=== PATIENT | female | born 1980 | race African-American/Black ===

== ENCOUNTER 2017-10-07 16:48 | Emergency (ER) | payer OTHER ==
[2017-10-07 16:57] VITALS: BP 175/99; PULSE 81; RESP 18; TEMP 97.8
--- NOTE | 2017-10-07 17:19 | ED ---
Skin/Abscess/FB HPI - General Chief complaint: Skin/Abscess/Foreign Body Stated complaint: Cyst on chest Time Seen by Provider: 10/07/17 17:10 Source: patient, RN notes reviewed Mode of arrival: ambulatory Limitations: no limitations - History of Present Illness Initial comments: This is a 36-year-old female who presents to emergency department with chief complaint of breast abscess. Patient states that she an abscess formed on her left areola 2 days ago. She states that she had this same issue last May and was seen here for incision and drainage. At that time she was started on oral antibiotics that cleared the infection up. Patient denies any fevers or chills. She denies any drainage from the area. Denies shortness breath, chest pain, nausea or vomiting. - Related Data Previous Rx's Medication Instructions Recorded Sulfamethox-Tmp 800-160Mg [Bactrim 1 tab PO Q12HR #20 tab 10/07/17 DS 800-160 mg] Allergies Allergy/AdvReac Type Severity Reaction Status Date / Time No Known Allergies Allergy Verified 10/07/17 16:57 Review of Systems ROS Statement: Those systems with pertinent positive or pertinent negative responses have been documented in the HPI. ROS Other: All systems not noted in ROS Statement are negative. Past Medical History Past Medical History: Hypertension History of Any Multi-Drug Resistant Organisms: None Reported Past Surgical History: No Surgical Hx Reported Additional Past Surgical History / Comment(s): fibroid tumors removed Past Psychological History: No Psychological Hx Reported Smoking Status: Current every day smoker Past Alcohol Use History: None Reported Past Drug Use History: None Reported General Exam - General Exam Comments Initial Comments: General: Awake and alert, well-developed; in no apparent distress. HEENT: Head atraumatic, normocephalic. Pupils are equal, round and reactive to light. Extraocular movements intact. Neck: Supple. Normal ROM. Cardiovascular: Regular rate and rhythm. No murmurs, rubs or gallops. Chest symmetrical. Respiratory: Lungs clear to auscultation bilaterally. No wheezes, rales or rhonchi. Normal respiratory effort with no use of accessory muscles. Musculoskeletal: Normal ROM, no tenderness bilateral upper and lower extremities. Ambulating normally. Skin: Hurricane, warm and dry without rashes. 2 cm x 2 cm area of fluctuance noted at medial left areola and nipple. No active drainage. Neurological: Alert and oriented x3. CN II-XII grossly intact. Speech is fluent and answers are appropriate. No focal neuro deficits. Psychiatric: Normal mood and affect. No overt signs of depression or anxiety noted. Limitations: no limitations Course Vital Signs 10/07/17 16:54 Temperature 97.8 F Pulse Rate 81 Respiratory 18 Rate Blood Pressure 175/99 O2 Sat by Pulse 100 Oximetry Procedures - Incision & Drainage Consent Obtained: verbal consent Indication: abscess Site: chest (left breast areola/nipple) Size (cm): 2 Anesthetic Used: lidocaine 1% Amount (mLs): 2 I&D Cleaning Method: Betadine Scalpel Used: #11 I&D Drainage Obtained: Pus, Blood Culture Obtained?: No Patient Tolerated Procedure: well, no complications Medical Decision Making - Medical Decision Making This is a 36-year-old female who presents to the emergency department with chief complaint of breast abscess. I&D was performed and contents consisted of blood and pus. Patient tolerated well without complication. A light gauze dressing was placed. This is the second time patient has had an abscess of the left areola. I explained to patient that this may be an inflamed cyst that needs to be fully removed when it is not infected. Patient will follow up with general surgery. She will be discharged home with a prescription for Bactrim. Recommended following up with her primary care provider. She is in agreement plan and voices understanding. All questions were answered. Disposition Clinical Impression: Abscess of breast Disposition: HOME SELF-CARE Condition: Good Instructions: Abscess Incision and Drainage (ED), Abscess (ED) Additional Instructions: Please follow-up with Dr. Ellis, General Surgeon within 1-2 days. Please take medications as prescribed. Please follow up with primary care provider within 1- 2 days. Return to emergency department if symptoms should worsen or any concerns arise. Prescriptions: Sulfamethox-Tmp 800-160Mg [Bactrim DS 800-160 mg] 1 tab PO Q12HR #20 tab Referrals: Sonido Akbar MD [Primary Care Provider] - 1-2 days Denise Ellis DO [Doctor of Osteopathic Medicine] - 1-2 days Time of Disposition: 17:49
== END 2017-10-07 18:05 | disposition home or self-care (01) ==
LOC: EC 16:48
DX: N61.1 Abscess of the breast and nipple (principal); F17.200 Nicotine dependence, unspecified, uncomplicated
CPT/HCPCS: 10060; 99282

== ENCOUNTER 2017-12-01 09:55 | Emergency (ER) | payer OTHER ==
[2017-12-01] MEDS ORDERED: KETOROLAC 30 MG/ML 1 ML VIAL IVP ONE (10:14)
--- NOTE | 2017-12-01 10:19 | ED ---
General Adult HPI - General Chief complaint: Abdominal Pain Stated complaint: Abd Pain Time Seen by Provider: 12/01/17 10:02 Source: patient Mode of arrival: ambulatory Limitations: no limitations - History of Present Illness Initial comments: Torri 37-year-old female with a past medical history significant for uterine fibroids who presents to the emergency department today for evaluation of low pelvic cramping pain and dysuria since yesterday. Patient reports that her menstrual cycle ended 2 days ago, yesterday while working she developed a cramping and pulling type pain in her low pelvis. The pain has persisted overnight which prompted her to come to the emergency department for evaluation. Pain is described as a pulling sensation. She reports the pain is severe in nature, worse with palpation. She can identify any relieving factors to the pain. The pain is associated with dysuria which she describes as worsening cramping when she urinates. She denies any burning sensation with urination. She reports that due to the pain she's had a decreased appetite and hasn't eaten anything today. She denies any constipation or diarrhea. Her last bowel movement was yesterday and was normal in color caliber and consistency. Patient denies any nausea or vomiting. She denies any fevers or chills. She reports that in 2014 she advised that she had multiple large uterine fibroids, she underwent surgery to remove the fibroids and has not followed with gynecology since that time. She does report that last week she had surgery to remove a benign mass from her breast. - Related Data Previous Rx's Medication Instructions Recorded Ibuprofen [Motrin] 800 mg PO TID #30 tab 12/01/17 Allergies Allergy/AdvReac Type Severity Reaction Status Date / Time No Known Allergies Allergy Verified 12/01/17 10:23 Review of Systems ROS Statement: Those systems with pertinent positive or pertinent negative responses have been documented in the HPI. ROS Other: All systems not noted in ROS Statement are negative. Constitutional: Denies: fever, chills Respiratory: Denies: cough, dyspnea Cardiovascular: Denies: chest pain, palpitations Endocrine: Denies: fatigue Gastrointestinal: Reports: abdominal pain. Denies: nausea, vomiting Genitourinary: Reports: dysuria. Denies: urgency, frequency, hematuria, discharge, abnormal menses Musculoskeletal: Denies: back pain Skin: Denies: rash, lesions Neurological: Denies: headache, weakness Psychiatric: Denies: anxiety, depression Hematological/Lymphatic: Denies: easy bleeding, easy bruising Past Medical History Past Medical History: Hypertension History of Any Multi-Drug Resistant Organisms: None Reported Past Surgical History: No Surgical Hx Reported Additional Past Surgical History / Comment(s): fibroid tumors removed, breast Past Psychological History: No Psychological Hx Reported Smoking Status: Current every day smoker Past Alcohol Use History: None Reported Past Drug Use History: None Reported General Exam Limitations: no limitations General appearance: alert, in no apparent distress Head exam: Present: atraumatic, normocephalic, normal inspection Eye exam: Present: normal appearance, PERRL, EOMI. Absent: scleral icterus, conjunctival injection, periorbital swelling ENT exam: Present: normal exam, mucous membranes moist Neck exam: Present: normal inspection. Absent: tenderness, meningismus, lymphadenopathy Respiratory exam: Present: normal lung sounds bilaterally. Absent: respiratory distress, wheezes, rales, rhonchi, stridor Cardiovascular Exam: Present: regular rate, normal rhythm, normal heart sounds. Absent: systolic murmur, diastolic murmur, rubs, gallop, clicks GI/Abdominal exam: Present: soft, tenderness (low suprapubic region), normal bowel sounds. Absent: distended, guarding, rebound, rigid Extremities exam: Present: normal inspection, full ROM, normal capillary refill. Absent: tenderness, pedal edema, joint swelling, calf tenderness Back exam: Present: normal inspection Neurological exam: Present: alert, oriented X3, CN II-XII intact Psychiatric exam: Present: normal affect, normal mood Skin exam: Present: warm, dry, intact, normal color. Absent: rash Course Vital Signs 12/01/17 09:58 Temperature 98.4 F Pulse Rate 71 Respiratory 18 Rate Blood Pressure 138/94 O2 Sat by Pulse 99 Oximetry - Reevaluation(s) Reevaluation #1: Patient re-evaluated, reports pain in her right hand due to her IV is more severe than the pain in her suprapubic region. Is eager to have her IV removed and be discharged. 12/01/17 11:35 Medical Decision Making - Medical Decision Making Patient was seen and evaluated, history was obtained from the patient History and physical exam are concerning for low pelvic pain, with a history of uterine fibroids. Patient has no pain in the right lower quadrant, no nausea, vomiting or fever. Negative McBurney's point tenderness and negative Rovsing sign upon initial evaluation I have a high suspicion for a gynecological cause of the patient's discomfort, urinalysis, labs and ultrasound were ordered Toradol was ordered for analgesia Labs with no significant abnormalities Urinalysis with gross contamination, multiple squamous epithelium coming no nitrites, no leukocytes, no evidence of acute urinary tract infection Sound with a 4 cm uterine fibroid Results were discussed with the patient, patient reports pain in her right hand due to her IV is more significant than the pain she has experienced with a fibroid. I offered the patient a pelvic exam to test for sexual transmitted infections and to obtain direct visualization of her cervix and vaginal canal. Patient states that she has no concern for sexual transmitted infections, she's not having any vaginal bleeding and she doesn't feel that she needs a pelvic exam at this time. At this time based on history, physical exam and workup in the emergency Department there has been no identification of an acute emergency. Patient does have a uterine fibroid which is likely causing discomfort, she does require follow up with gynecology for further management. Patient was advised to return to the emergency department for any acute worsening of her pain, development of vaginal bleeding or new or concerning symptoms. All questions pertaining to care were answered to the best of my ability patient was discharged home with Motrin for analgesia and referral to gynecology. - Lab Data Result diagrams: 12/01/17 10:50 12/01/17 10:31 Lab Results 12/01/17 12/01/17 12/01/17 Range/Units 10:31 10:31 10:31 WBC (3.8-10.6) k/uL RBC (3.80-5.40) m/uL Hgb (11.4-16.0) gm/dL Hct (34.0-46.0) % MCV (80.0-100.0) fL MCH (25.0-35.0) pg MCHC (31.0-37.0) g/dL RDW (11.5-15.5) % Plt Count (150-450) k/uL Neutrophils % % Lymphocytes % % Monocytes % % Eosinophils % % Basophils % % Neutrophils # (1.3-7.7) k/uL Lymphocytes # (1.0-4.8) k/uL Monocytes # (0-1.0) k/uL Eosinophils # (0-0.7) k/uL Basophils # (0-0.2) k/uL Sodium 141 (137-145) mmol/L Potassium 4.6 (3.5-5.1) mmol/L Chloride 111 H (98-107) mmol/L Carbon Dioxide 19 L (22-30) mmol/L Anion Gap 11 mmol/L BUN 13 (7-17) mg/dL Creatinine 0.70 (0.52-1.04) mg/dL Est GFR (CKD-EPI)AfAm >90 (>60 ml/min/1.73 sqM) Est GFR (CKD-EPI)NonAf >90 (>60 ml/min/1.73 sqM) Glucose 94 (74-99) mg/dL Calcium 9.7 (8.4-10.2) mg/dL Total Bilirubin 0.4 (0.2-1.3) mg/dL AST 23 (14-36) U/L ALT 20 (9-52) U/L Alkaline Phosphatase 89 (38-126) U/L Total Protein 7.3 (6.3-8.2) g/dL Albumin 3.8 (3.5-5.0) g/dL Urine Color Yellow Urine Appearance Cloudy H (Clear) Urine pH 6.0 (5.0-8.0) Ur Specific [place] 1.027 (1.001-1.035) Urine Protein Trace H (Negative) Urine Glucose (UA) Negative (Negative) Urine Ketones Negative (Negative) Urine Blood Small H (Negative) Urine Nitrite Negative (Negative) Urine Bilirubin Negative (Negative) Urine Urobilinogen 2.0 (<2.0) mg/dL Ur Leukocyte Esterase Negative (Negative) Urine RBC 1 (0-5) /hpf Urine WBC 4 (0-5) /hpf Ur Squamous Epith Cells 24 H (0-4) /hpf Urine Bacteria Rare H (None) /hpf Urine Mucus Many H (None) /hpf Urine HCG, Qual Not Detected (Not Detectd) 12/01/17 Range/Units 10:50 WBC 4.4 (3.8-10.6) k/uL RBC 4.46 (3.80-5.40) m/uL Hgb 11.6 (11.4-16.0) gm/dL Hct 37.2 (34.0-46.0) % MCV 83.4 (80.0-100.0) fL MCH 26.1 (25.0-35.0) pg MCHC 31.2 (31.0-37.0) g/dL RDW 13.6 (11.5-15.5) % Plt Count 273 (150-450) k/uL Neutrophils % 49 % Lymphocytes % 38 % Monocytes % 6 % Eosinophils % 4 % Basophils % 0 % Neutrophils # 2.2 (1.3-7.7) k/uL Lymphocytes # 1.7 (1.0-4.8) k/uL Monocytes # 0.3 (0-1.0) k/uL Eosinophils # 0.2 (0-0.7) k/uL Basophils # 0.0 (0-0.2) k/uL Sodium (137-145) mmol/L Potassium (3.5-5.1) mmol/L Chloride (98-107) mmol/L Carbon Dioxide (22-30) mmol/L Anion Gap mmol/L BUN (7-17) mg/dL Creatinine (0.52-1.04) mg/dL Est GFR (CKD-EPI)AfAm (>60 ml/min/1.73 sqM) Est GFR (CKD-EPI)NonAf (>60 ml/min/1.73 sqM) Glucose (74-99) mg/dL Calcium (8.4-10.2) mg/dL Total Bilirubin (0.2-1.3) mg/dL AST (14-36) U/L ALT (9-52) U/L Alkaline Phosphatase (38-126) U/L Total Protein (6.3-8.2) g/dL Albumin (3.5-5.0) g/dL Urine Color Urine Appearance (Clear) Urine pH (5.0-8.0) Ur Specific [place] (1.001-1.035) Urine Protein (Negative) Urine Glucose (UA) (Negative) Urine Ketones (Negative) Urine Blood (Negative) Urine Nitrite (Negative) Urine Bilirubin (Negative) Urine Urobilinogen (<2.0) mg/dL Ur Leukocyte Esterase (Negative) Urine RBC (0-5) /hpf Urine WBC (0-5) /hpf Ur Squamous Epith Cells (0-4) /hpf Urine Bacteria (None) /hpf Urine Mucus (None) /hpf Urine HCG, Qual (Not Detectd) Disposition Clinical Impression: Uterine fibroid Disposition: HOME SELF-CARE Condition: Good Instructions: Uterine Fibroids (ED) Additional Instructions: Call gynecology today to establish a follow-up appointment Prescriptions: Ibuprofen [Motrin] 800 mg PO TID #30 tab Referrals: Sonido Akbar MD [Primary Care Provider] - 1-2 days Mariana Ramirez DO [Doctor of Osteopathic Medicine] - 1-2 days Time of Disposition: 11:42
[2017-12-01 10:59] LABS: Appearance,Urine Cloudy (Clear); Bacteria,Urine Rare /hpf; Bilirubin,Urine Negative (Negative); Blood,Urine Small (Negative); Color,Urine Yellow; Glucose,Urine (UA) Negative (Negative); Ketones,Urine Negative (Negative); Leukocyte Esterase,Urine Negative (Negative); Mucus,Urine Many /hpf; Nitrite,Urine Negative (Negative); Protein,Urine Trace (Negative); RBC,Urine 1 /hpf (0-5); Specific Gravity,Urine 1.027 (1.001-1.035); Squamous Epithelial Cell,Urine 24 /hpf (0-4); WBC,Urine 4 /hpf (0-5)
[2017-12-01 11:02] LABS: Basophils % (A) 0 %; Eosinophils # (A) 0.2 k/uL (0-0.7); Eosinophils % (A) 4 %; HCT 37.2 % (34.0-46.0); HGB 11.6 gm/dL (11.4-16.0); Lymphocytes # (A) 1.7 k/uL (1.0-4.8); Lymphocytes % (A) 38 %; MCH 26.1 pg (25.0-35.0); MCHC 31.2 g/dL (31.0-37.0); MCV 83.4 fL (80.0-100.0); Mean Platelet Volume 8.4; Monocytes # (A) 0.3 k/uL (0-1.0); Monocytes % (A) 6 %; Neutrophils # (A) 2.2 k/uL (1.3-7.7); Neutrophils % (A) 49 %; Platelet Count 273 k/uL (150-450); RBC 4.46 m/uL (3.80-5.40); RDW 13.6 % (11.5-15.5); WBC 4.4 k/uL (3.8-10.6)
[2017-12-01 11:03] LABS: ALT 20 U/L (9-52); AST 23 U/L (14-36); Albumin 3.8 g/dL (3.5-5.0); Alkaline Phosphatase 89 U/L (38-126); Anion Gap 11 mmol/L; Blood Urea Nitrogen 13 mg/dL (7-17); Calcium 9.7 mg/dL (8.4-10.2); Carbon Dioxide 19 mmol/L (22-30); Chloride 111 mmol/L (98-107); Glucose 94 mg/dL (74-99); Potassium 4.6 mmol/L (3.5-5.1); Sodium 141 mmol/L (137-145); Total Bilirubin 0.4 mg/dL (0.2-1.3); Total Protein 7.3 g/dL (6.3-8.2)
--- NOTE | 2017-12-01 11:29 | US ---
EXAMINATION TYPE: US pelvic complete DATE OF EXAM: 12/01/2017 COMPARISON: NONE CLINICAL HISTORY: pelvic pain, hx of fibroids. TECHNIQUE: . Transabdominal sonographic images of the pelvis were acquired. Transvaginal sonographi c images were medically necessary to better assess the following anatomy: Date of LMP: 11/26/17 EXAM MEASUREMENTS: Uterus: 8.0 X 6.0 x 6.2 cm Endometrial Stripe: 0.6 cm Right Ovary: 2.5 x 2.6 x 2.1 cm Left Ovary: 3.7 x 3.4 x 2.2 cm 1. Uterus: Anteverted, fibroid measuring 3.7 x 4.3 x 3.7cm 2. Endometrium: wnl 3. Right Ovary: wnl 4. Left Ovary: wnl Spectral, color and waveform doppler imaging shows good arterial and venous flow within the ovaries ; there is no evidence for ovarian torsion. 5. Bilateral Adnexa: wnl 6. Posterior cul-de-sac: wnl IMPRESSION: 1. There is a mass within the uterus suggestive of a fibroid measuring 4.3 cm.
[2017-12-01 11:53] VITALS: BP 154/88; PULSE 59; RESP 16; TEMP 97.9
== END 2017-12-01 11:53 | disposition home or self-care (01) ==
LOC: EC 09:55
DX: D25.9 Leiomyoma of uterus, unspecified (principal); F17.200 Nicotine dependence, unspecified, uncomplicated; Z98.890 Other specified postprocedural states
CPT/HCPCS: 36415; 80053; 85025; 81001; 81025; 93975; 76856; 99284; 96374; J1885

== ENCOUNTER 2018-09-13 09:51 | Emergency (ER) | payer OTHER ==
[2018-09-13 10:07] VITALS: RESP 18
[2018-09-13] MEDS ORDERED: LORazepam 2 MG/ML INJ IM STA (10:57)
[2018-09-13] MEDS ORDERED: diphenhydrAMINE 50 MG CAP PO STA (10:57)
--- NOTE | 2018-09-13 11:02 | ED ---
Recheck HPI - General Chief Complaint: Recheck/Abnormal Lab/Rx Stated Complaint: hasn't slept in 3 days Time Seen by Provider: 09/13/18 10:41 Source: patient Mode of arrival: ambulatory Limitations: no limitations - History of Present Illness Initial Comments: 37-year-old female past medical history of hypertension presenting today for chief complaint of insomnia. Patient states she has not been able to sleep for the past 3 days, she states she has just been thinking of the usual life stressors such as bills and expenses. She states she has had slight anxiety however she states this is not the worst anxiety she has ever experienced, she states she has has much worse and does not understand why she cant sleep. Pt states that she has taken melatonin and tylenol PM however this has not helped. Patient states that she has no other symptoms just cannot sleep, she states her mind is racing. Denies any suicidal or homicidal ideations, or hallucinations. Patient denies experiencing this in the past. Patient denies any recent fever, chills, shortness of breath, chest pain, back pain, abdominal pain, nausea or vomiting, numbness or tingling, dysuria or hematuria, constipation or diarrhea, headaches or visual changes, or any other complaints. Pt states she would just like to get some sleep. Upon arrival pt is crying, she appears upset, but well appearing there is no signs of distress. Noted elevation of BP upon arrival. - Related Data Previous Rx's Medication Instructions Recorded Temazepam [Restoril] 7.5 mg PO HS 3 Days #3 cap 09/13/18 Allergies Allergy/AdvReac Type Severity Reaction Status Date / Time No Known Allergies Allergy Verified 09/13/18 10:31 Review of Systems ROS Statement: Those systems with pertinent positive or pertinent negative responses have been documented in the HPI. ROS Other: All systems not noted in ROS Statement are negative. Past Medical History Past Medical History: Hypertension History of Any Multi-Drug Resistant Organisms: None Reported Past Surgical History: No Surgical Hx Reported Additional Past Surgical History / Comment(s): fibroid tumors removed, breast Past Psychological History: No Psychological Hx Reported Smoking Status: Current every day smoker Past Alcohol Use History: None Reported Past Drug Use History: None Reported General Exam - General Exam Comments Initial Comments: General: The patient is awake and alert, in no distress, and does not appear acutely ill. Eye: +3 mm pupils are equal, round and reactive to light, extra-ocular movements are intact. No nystagmus. There is normal conjunctiva bilaterally. No signs of icterus. Ears, nose, mouth and throat: There are moist mucous membranes and no oral lesions. Neck: The neck is supple, there is no tenderness or JVD. Cardiovascular: There is a regular rate and rhythm. No murmur, rub or gallop is appreciated. Respiratory: Lungs are clear to auscultation, respirations are non-labored, breath sounds are equal. No wheezes, stridor, rales, or rhonchi. Gastrointestinal: Soft, non-distended, non-tender abdomen without masses or organomegaly noted. There is no rebound or guarding present. No CVA tenderness. Bowel sounds are unremarkable. Musculoskeletal: Normal ROM, no tenderness. Strength 5/5. Sensation intact. Pulses equal bilaterally 2+. Neurological: A&O x 3. CN II-XII intact, There are no obvious motor or sensory deficits. Coordination appears grossly intact. Speech is normal. Skin: Skin is warm and dry and no rashes or lesions are noted. Psychiatric: Cooperative, appropriate mood & affect, normal judgment. Limitations: no limitations Course Vital Signs 09/13/18 09/13/18 10:05 12:55 Temperature 98.2 F 98 F Pulse Rate 83 79 Respiratory 18 18 Rate Blood Pressure 148/105 152/96 O2 Sat by Pulse 100 100 Oximetry - Reevaluation(s) Reevaluation #1: Pt sleeping. 09/13/18 12:36 Medical Decision Making - Medical Decision Making 37-year-old male presenting for insomnia. Remainder of ROS (-). PE unremarkable. Pt given Ativan and Benadryl. Upon reevaluation pt sleeping. Pt requesting D/C. pt appears well. No signs of distress. Pt BP elevated, pt has known HTN and recommended PCP follow-up the next 1-2 days. No signs of EOD, remaining ROS (-). Pt agreeable with plan and discharge. Safe use and risks associated with Restoril were discussed at length with patient who verbalized understanding. I discussed the case in detail with Dr. Epps who agrees impression and plan. Patient was discharged in stable condition appearing well. Disposition Clinical Impression: Insomnia Disposition: HOME SELF-CARE Condition: Good Instructions: Insomnia (ED) Additional Instructions: Please use medication as discussed, no drinking alcohol, driving using opioids while taking medication. Please follow-up with family doctor in the next 2 days. Please return to emergency room if the symptoms increase or worsen or for any other concerns. Prescriptions: Temazepam [Restoril] 7.5 mg PO HS 3 Days #3 cap Is patient prescribed a controlled substance at d/c from ED?: No Referrals: Sonido Akbar MD [Primary Care Provider] - 1-2 days Time of Disposition: 12:34
[2018-09-13 12:57] VITALS: BP 152/96; PULSE 79; TEMP 98
== END 2018-09-13 12:58 | disposition home or self-care (01) ==
LOC: EC 09:51
DX: G47.00 Insomnia, unspecified (principal); I10 Essential (primary) hypertension; F17.200 Nicotine dependence, unspecified, uncomplicated
CPT/HCPCS: 99283; 96372; J2060

== ENCOUNTER 2018-10-15 09:53 | Emergency (ER) | payer OTHER ==
[2018-10-15] MEDS ORDERED: cloNIDine HCL 0.1 MG TAB PO STA (10:41)
--- NOTE | 2018-10-15 10:43 | ED ---
General Adult HPI - General Chief complaint: ENT Stated complaint: ENT Time Seen by Provider: 10/15/18 10:13 Source: patient, RN notes reviewed Mode of arrival: ambulatory Limitations: no limitations - History of Present Illness Initial comments: 37-year-old female presents to the emergency department for a chief complaint of sore throat. Patient states this started last night. Patient states it is painful to swallow but she does not have any difficulty swallowing solids or liquids. No debility breathing. Patient also admits to a cough 2 days. Denies productive cough. Denies history of smoking or asthma. Denies shortness of breath or chest pain. Patient has not had any fevers or chills. Patient also has some congestion noted. Patient has no other complaints at this time including shortness of breath, chest pain, abdominal pain, nausea or vomiting, headache, or visual changes. - Related Data Home Medications Medication Instructions Recorded Confirmed No Known Home Medications 10/15/18 10/15/18 Allergies Allergy/AdvReac Type Severity Reaction Status Date / Time No Known Allergies Allergy Verified 10/15/18 10:26 Review of Systems ROS Statement: Those systems with pertinent positive or pertinent negative responses have been documented in the HPI. ROS Other: All systems not noted in ROS Statement are negative. Past Medical History Past Medical History: Hypertension History of Any Multi-Drug Resistant Organisms: None Reported Past Surgical History: No Surgical Hx Reported Additional Past Surgical History / Comment(s): fibroid tumors removed, breast Past Psychological History: No Psychological Hx Reported Smoking Status: Current every day smoker Past Alcohol Use History: None Reported Past Drug Use History: None Reported General Exam Limitations: no limitations General appearance: alert, in no apparent distress Head exam: Present: atraumatic, normocephalic, normal inspection Eye exam: Present: normal appearance, PERRL, EOMI. Absent: scleral icterus, conjunctival injection, periorbital swelling ENT exam: Present: normal exam, normal oropharynx, mucous membranes moist, TM's normal bilaterally, normal external ear exam Neck exam: Present: normal inspection, full ROM. Absent: tenderness, meningismus, lymphadenopathy Respiratory exam: Present: normal lung sounds bilaterally. Absent: respiratory distress, wheezes, rales, rhonchi, stridor Cardiovascular Exam: Present: regular rate, normal rhythm, normal heart sounds. Absent: systolic murmur, diastolic murmur, rubs, gallop, clicks Neurological exam: Present: alert, oriented X3, CN II-XII intact Psychiatric exam: Present: normal affect, normal mood Course Vital Signs 10/15/18 10/15/18 10/15/18 10:00 11:08 11:36 Temperature 97.7 F Pulse Rate 84 69 Respiratory 20 18 Rate Blood Pressure 186/112 140/107 149/101 O2 Sat by Pulse 98 100 Oximetry Medical Decision Making - Medical Decision Making 37-year-old female presents to the emergency department for a chief complaint of sore throat 12 hours. She states it is painful to swallow but does not have any difficulty swallowing or breathing. She also has a dry cough. No fevers or chills. She is well-appearing. No shortness of breath. Lungs are clear to auscultation bilaterally. Strep is negative. Chest x-ray is negative. Patient was initially hypertensive here in the emergency department. She states she does have a history of hypertension and is aware of this. She denies any chest pain, shortness of breath, headache, visual changes. She was given 0.1 of clonidine and blood pressure decreased to 149/101. Patient likely has a viral pharyngitis and upper respiratory infection. Discussed Motrin and Tylenol for pain. Discussed cold liquids. Patient will return here she has any worsening symptoms. - Lab Data Lab Results 10/15/18 Range/Units 10:20 Group A Strep Rapid Negative (Negative) Disposition Clinical Impression: Upper respiratory infection, Pharyngitis Disposition: HOME SELF-CARE Condition: Good Instructions (If sedation given, give patient instructions): Pharyngitis (ED), Upper Respiratory Infection (ED) Additional Instructions: Please follow up with primary care in 1-2 days. Take Motrin and Tylenol for pain. Drink cold liquids. Return to the emergency department if you have any worsening symptoms. Is patient prescribed a controlled substance at d/c from ED?: No Referrals: Sonido Akbar MD [Primary Care Provider] - 1-2 days Time of Disposition: 12:18
--- NOTE | 2018-10-15 10:52 | XR ---
EXAMINATION TYPE: XR chest 2V DATE OF EXAM: 10/15/2018 COMPARISON: NONE HISTORY: Cough and congestion TECHNIQUE: Frontal and lateral views of the chest are obtained. FINDINGS: There is no focal air space opacity, pleural effusion, or pneumothorax seen. The cardiac silhouette size is within normal limits. The osseous structures are intact. IMPRESSION: No acute cardiopulmonary process.
[2018-10-15 12:48] VITALS: BP 149/90; PULSE 72; RESP 16; TEMP 98.2
== END 2018-10-15 12:46 | disposition home or self-care (01) ==
LOC: EC 09:53
DX: J02.9 Acute pharyngitis, unspecified (principal); I10 Essential (primary) hypertension; F17.200 Nicotine dependence, unspecified, uncomplicated
CPT/HCPCS: 71046; 87081; 87430; 99283

== ENCOUNTER 2022-05-06 11:06 | Inpatient (IN) | payer MEDICAID, OTHER ==
[2022-05-06 11:17] VITALS: TEMP 98.3
--- NOTE | 2022-05-06 12:19 | ED ---
Psych HPI - General Chief Complaint: Psychiatric Symptoms Stated Complaint: mental health Time Seen by Provider: 05/06/22 11:18 Source: patient, police, RN notes reviewed Mode of arrival: ambulatory Limitations: no limitations - History of Present Illness Initial Comments: 41-year-old female presents emergency Department with police, EMS for psychiatric evaluation. Patient is very paranoid, talking to herself. Patient states that her neighbors called for concerns of her. Patient denies illicit drug use no alcohol abuse has been suicidal or homicidal denies any medications currently NO KNOWN DRUG ALLERGIES. No physical complaints. - Related Data Home Medications Medication Instructions Recorded Confirmed No Known Home Medications 10/15/18 05/06/22 Allergies Allergy/AdvReac Type Severity Reaction Status Date / Time No Known Allergies Allergy Verified 05/06/22 19:52 Review of Systems ROS Statement: Those systems with pertinent positive or pertinent negative responses have been documented in the HPI. ROS Other: All systems not noted in ROS Statement are negative. Past Medical History Past Medical History: Hypertension History of Any Multi-Drug Resistant Organisms: None Reported Past Surgical History: No Surgical Hx Reported Additional Past Surgical History / Comment(s): fibroid tumors removed, breast Past Psychological History: No Psychological Hx Reported Smoking Status: Current every day smoker Past Alcohol Use History: None Reported Past Drug Use History: Marijuana General Exam Limitations: no limitations General appearance: alert, in no apparent distress, anxious Head exam: Present: atraumatic, normocephalic, normal inspection Eye exam: Present: normal appearance, PERRL, EOMI. Absent: scleral icterus, conjunctival injection, periorbital swelling ENT exam: Present: normal exam, normal oropharynx, mucous membranes moist Neck exam: Present: normal inspection, full ROM. Absent: tenderness, meningismus, lymphadenopathy Respiratory exam: Present: normal lung sounds bilaterally. Absent: respiratory distress, wheezes, rales, rhonchi, stridor Cardiovascular Exam: Present: normal rhythm, tachycardia, normal heart sounds. Absent: systolic murmur, diastolic murmur, rubs, gallop, clicks Neurological exam: Present: alert, oriented X3, CN II-XII intact Psychiatric exam: Present: anxious, manic Skin exam: Present: warm, dry, intact, normal color. Absent: rash Course Vital Signs 05/06/22 11:14 Temperature 98.3 F Pulse Rate 122 H Respiratory 20 Rate Blood Pressure 146/95 O2 Sat by Pulse 99 Oximetry Medical Decision Making - Medical Decision Making Patient was evaluated by EPS, will be admitted for psychiatric treatment. - Lab Data Lab Results 05/06/22 Range/Units 15:43 Coronavirus (PCR) Not Detected (Not Detectd) Disposition Clinical Impression: Bipolar disorder Disposition: TRANSFER TO PSYCH HOSP/UNIT
[2022-05-06] MEDS ORDERED: MAG HYDROX/AL HYDROX/SIMETH 30 ML CUP PO PRN (20:14)
[2022-05-06] MEDS ORDERED: ACETAMINOPHEN TAB 325 MG TAB PO PRN (20:14)
[2022-05-06] MEDS ORDERED: MAGNESIUM HYDROXIDE 2,400 MG/10 ML CUP PO PRN (20:14)
[2022-05-06] MEDS ORDERED: LORazepam 1 MG TAB PO PRN (20:16)
[2022-05-06] MEDS ORDERED: haloperidoL 5 MG TAB PO PRN (20:18)
[2022-05-06] MEDS ORDERED: LORazepam 2 MG/ML INJ IM PRN (20:18)
[2022-05-06] MEDS ORDERED: HALOPERIDOL LACTATE 5 MG/ML 1 ML VIAL IM PRN (20:19)
[2022-05-07] MEDS: amLODIPine 5 MG TAB PO SCH (09:11)
[2022-05-07] MEDS: NICOTINE 14MG/24HR PATCH TRANSDERM SCH (09:12)
[2022-05-07] MEDS ORDERED: SERTRALINE 50 MG TAB PO SCH (12:00)
[2022-05-07] MEDS: SERTRALINE 25 MG TAB PO SCH (12:51)
--- NOTE | 2022-05-07 13:16 | P.HP ---
Psychiatric H&P - . H&P Date: 05/07/22 History & Physical: Allergies Allergy/AdvReac Type Severity Reaction Status Date / Time No Known Allergies Allergy Verified 05/06/22 19:52 Vital Signs Temp 98.3 F 05/06/22 11:14 Pulse 98 05/06/22 22:54 Resp 20 05/06/22 11:14 BP 146/95 05/06/22 11:14 Pulse Ox 99 05/06/22 11:14 FiO2 Intake & Output 05/06/22 05/07/22 05/07/22 18:59 06:59 18:59 Weight 86.183 kg Laboratory Last Values Coronavirus (PCR) Not Detected (Not Detectd) 05/06/22 15:43 05/07/22 11:56 IDENTIFYING DATA: Patient is a 41-year-old -[place] female, who currently lives with her fianc in an apartment and has one son. Currently in school. HPI: Patient presented to the hospital by the police. Patient was admitted voluntarily for apparently acting aggressive, paranoid yelling and also threatening to harm herself with a knife. Patient was seen sleeping today and agreeable to speak to securities underwriter. The patient appeared to be in distress and was fairly irritable and argumentative with securities underwriter. She was fairly vague guarded and evasive about the events that occurred prior to her coming out of the hospital. She claims that the "neighbors saw me trying to harm myself". She cl aims that the neighbors never saw her before but they apparently called the police. She also claims that her fianc also stated the same thing that she was trying to harm herself with a knife. She claims that she was upset yesterday and yelling because her 17-year-old son wants to drop out of school and "get a girl ". She claims that "he's stuttering way his life". She was crying during the interview and rambling and was a fairly poor historian. She was focused on discharge and minimizing her symptoms and situation. She is not reporting any paranoia at this time. She states that her sleep and appetite are fair. She claims that her mood is "fine" however affect was incongruent and did appear to be depressed and anxious. Patient denies any suicidal or homicidal ideations intent or plan. At this time patient denies any auditory or visual hallucinations. Patient denies any flight of ideas racing thoughts and increased in goal directed behavior. Patient admits to using marijuana and also cigarettes daily. She denies any other recreational drug use. UDS is currently pending. PAST PSYCHIATRIC HISTORY: Patient states that she has no previous psychiatric history. Patient denies being on any psychiatric medications. Patient denies any previous psychiatric hospitalizations. Patient denies any psychiatric outpatient follow-up. Patient denies any history of suicide attempts in the past. PMH: As per medicine H&P ALLERGIES: as per EMR CHEMICAL DEPENDENCY HISTORY: as per HPI FAMILY PSYCHIATRIC/SUBSTANCE USE HISTORY: denies SOCIAL HISTORY: Patient was born and raised in [facility]. She states that she completed high school and is currently in school now doing college for business. She states that she has one son and currently lives with her fianc in an apartment.. MENTAL STATUS EXAM: General Appearance: Patient appears to have a shaved head, wearing glasses, irritable stated age is alert, vague and evasive. Patient appears to have poor hygiene and grooming. Behavior: Patient is seated without any agitated behavior. Today, evasive and irritable. Argumentative. Speech: Patient's speech is fluent and nonpressured. Loud at times Mood/Affect: Patient reports their mood is okay", affect is incongruent Suicidality/Homicidality: Patient denies having any homicidal ideation intent or plan. Denies any suicidal ideations intent or plan Perceptions: Patient denies any visual hallucinations and denies any auditory hallucinations Though content/process: There is no evidence of any delusional thought content and thought process is linear and goal-directed. Minimizes her situation and need for treatment. Focused on discharge. Catastrophizing Memory and concentration: AOX3, grossly intact for the purposes of this session. Can spell "WORLD" backwards Judgment and insight: poor STRENGTHS/WEAKNESSES: strength is that patient is resilient. Weakness is that patient has poor judgment and is impulsive INTELLECT: average IMPRESSIONS: Depressive disorder unspecified, rule out bipolar depression versus adjustment disorder with depressed mood versus major depressive disorder versus substance induced mood disorder Cannabis use disorder Nicotine dependence PLAN: -Patient is admitted under voluntary status to [facility] for stabilization of psychiatric symptoms and safety. Patient has signed adult voluntary form and medication consent and is placed in patient's chart. -Medications : Will start patient on Zoloft 25 mg daily for mood/anxiety. -Ativan and Haldol PRN for agitation/aggression -Patient was counselled on substance abuse and desired to cut back on use -Patient was informed of the risks, benefits and side effects of the medication and patient verbally consented to taking the medications. Patient signed med consent form and was placed in chart. -Internal Medicine consult to perform medical evaluation and physical. -NRT - nicotine patch -SW on board for discharge planning. Encourage patient to participate in groups to work on coping skills. 05/07/22 13:13
[2022-05-08 07:02] VITALS: RESP 16
[2022-05-08] MEDS: amLODIPine 5 MG TAB PO SCH (09:23)
[2022-05-08] MEDS: SERTRALINE 25 MG TAB PO SCH (09:23)
[2022-05-08] MEDS: NICOTINE 14MG/24HR PATCH TRANSDERM SCH (09:25)
--- NOTE | 2022-05-08 13:16 | P.PN ---
Progress Note - Text Progress Note Date: 05/08/22 Interval History: Patient was seen today for psychiatric follow up. Patient appears to be more d irectable today during conversation. She states that she is doing better today in terms of her mood and appears to be less irritable with fiction and nonfiction prose writer. She claims that she is trying to kill time and going to groups. She states that her goal today is "to shower". She states that she has been seen speaking with her sister and is looking forward to a possible discharge. She states that she is trying to remain positive and claims that the medication has been helping with her mood and anxiety. She claimed that she was able to sleep better last night and appears to be a lot more cooperative and less argumentative with fiction and nonfiction prose writer today. She was not tearful today during conversation. We spoke about potentially discharging tomorrow. Patient is tolerating medications well. She is denying any side effects at this time. Claims to have a fair appetite. Denying any suicidal or homicidal ideations intent or plan. She is denying any auditory or visual hallucinations. General Appearance: Patient appears to have a shaved head, wearing glasses, less irritable stated age is alert, more cooperative today. Patient appears to have improving hygiene and grooming. Behavior: Patient is seated without any agitated behavior. Not argumentative today. Less irritable. Speech: Patient's speech is fluent and nonpressured. Normal tone Mood/Affect: Patient reports their mood is "a bit better", affect is congruent Suicidality/Homicidality: Patient denies having any homicidal ideation intent or plan. Denies any suicidal ideations intent or plan Perceptions: Patient denies any visual hallucinations and denies any auditory hallucinations Though content/process: There is no evidence of any delusional thought content and thought process is linear and goal-directed.less Focused on discharge. Memory and concentration: AOX3, grossly intact for the purposes of this session. Can spell "WORLD" backwards Judgment and insight: Improving mildly IMPRESSIONS: Depressive disorder unspecified, rule out bipolar depression versus adjustment disorder with depressed mood versus major depressive disorder versus substance induced mood disorder Cannabis use disorder Nicotine dependence PLAN: -Patient is admitted under voluntary status to [facility] for stabilization of psychiatric symptoms and safety. Patient has signed adult voluntary form and medication consent and is placed in patient's chart. -Medications : increase Zoloft 50 mg daily for mood/anxiety. -Ativan and Haldol PRN for agitation/aggression -Internal Medicine consult to perform medical evaluation and physical. -NRT - nicotine patch -order worker working on disposition. Encourage patient to participate in milieu. Likely discharge tomorrow back home if patient is doing well.
--- NOTE | 2022-05-09 04:39 | CONS ---
CONSULTATION HISTORY OF PRESENT ILLNESS: A 41-year-old -[place] female whom I did a medical eval on today. She is not happy. She was taken to [facility] people who made her calm are not even family members. She is not seeing or hearing things. She is not psychiatric in any way, never has been. She has high blood pressure, gave her Norvasc 5 mg a day, was controlling it. She does not really want to take any medicines at all, wants to just leave. PAST MEDICAL HISTORY: Hypertension. MEDICATIONS: None. REVIEW OF SYSTEMS: A 14-point review of systems otherwise negative except for chronic acne which she wants nothing for that either. PHYSICAL EXAMINATION: VITAL SIGNS: Blood pressures 140s to 160s over 60s to 95. CARDIOVASCULAR: S1, S2. LUNGS: Clear. PSYCH: Very anxious, nervous. INTEGUMENT: Chronic pulse shows her healing and scarring from chronic wounds or pustules throughout her body. ASSESSMENT: Hypertension, gave her Norvasc 5 mg daily. I doubt she will continue on this, but that is what is recommend at this point. Wait for psychiatric treatment and then she can go home. MMODL / IJN: [id number] /
[2022-05-09] MEDS: amLODIPine 5 MG TAB PO SCH (08:19)
[2022-05-09 08:22] VITALS: BP 189/105; PULSE 82
[2022-05-09] MEDS ORDERED: SERTRALINE 50 MG TAB PO SCH (09:00)
--- NOTE | 2022-05-11 19:06 | P.DS ---
Providers Date of admission: 05/06/22 17:00 Expected date of discharge: 05/09/22 Attending physician: Marquis Hamilton MD Consults: 05/06/22 20:09 Consult Physician Routine Consulting Provider: Sonido Akbar Consult Reason/Comments: H&P Do you want consulting provider notified?: Yes Primary care physician: [facility] Course: Admission HPI: Admission note was completed by Dr. Hamilton "History & Physical: Allergies Allergy/AdvReac Type Severity Reaction Status Date / Time No Known Allergies Allergy Verified 05/06/22 19:52 Vital Signs Temp 98.3 F 05/06/22 11:14 Pulse 98 05/06/22 22:54 Resp 20 05/06/22 11:14 BP 146/95 05/06/22 11:14 Pulse Ox 99 05/06/22 11:14 FiO2 Intake & Output 05/06/22 05/07/22 05/07/22 18:59 06:59 18:59 Weight 86.183 kg Laboratory Last Values Coronavirus (PCR) Not Detected (Not Detectd) 05/06/22 15:43 05/07/22 11:56 IDENTIFYING DATA: Patient is a 41-year-old -[place] female, who currently lives with her fianc in an apartment and has one son. Currently in school. HPI: Patient presented to the hospital by the police. Patient was admitted voluntarily for apparently acting aggressive, paranoid yelling and also threatening to harm herself with a knife. Patient was seen sleeping today and a greeable to speak to sheet writer. The patient appeared to be in distress and was fairly irritable and argumentative with sheet writer. She was fairly vague guarded and evasive about the events that occurred prior to her coming out of the hospital. She claims that the "neighbors saw me trying to harm myself". She claims that the neighbors never saw her before but they apparently called the police. She also claims that her fianc also stated the same thing that she was trying to harm herself with a knife. She claims that she was upset yesterday and yelling because her 17-year-old son wants to drop out of school and "get a girl ". She claims that "he's stuttering way his life". She was crying during the interview and rambling and was a fairly poor historian. She was focused on discharge and minimizing her symptoms and situation. She is not reporting any paranoia at this time. She states that her sleep and appetite are fair. She claims that her mood is "fine" however affect was incongruent and did appear to be depressed and anxious. Patient denies any suicidal or homicidal ideations intent or plan. At this time patient denies any auditory or visual hallucinations. Patient denies any flight of ideas racing thoughts and increased in goal directed behavior. Patient admits to using marijuana and also cigarettes daily. She denies any other recreational drug use. UDS is currently pending. PAST PSYCHIATRIC HISTORY: Patient states that she has no previous psychiatric history. Patient denies being on any psychiatric medications. Patient denies any previous psychiatric hospitalizations. Patient denies any psychiatric outpatient follow-up. Patient denies any history of suicide attempts in the past. PMH: As per medicine H&P ALLERGIES: as per EMR CHEMICAL DEPENDENCY HISTORY: as per HPI FAMILY PSYCHIATRIC/SUBSTANCE USE HISTORY: denies SOCIAL HISTORY: Patient was born and raised in [facility]. She states that she completed high school and is currently in school now doing college for business. She states that she has one son and currently lives with her fianc in an apartment.. MENTAL STATUS EXAM: General Appearance: Patient appears to have a shaved head, wearing glasses, irritable stated age is alert, vague and evasive. Patient appears to have poor hygiene and grooming. Behavior: Patient is seated without any agitated behavior. Today, evasive and irritable. Argumentative. Speech: Patient's speech is fluent and nonpressured. Loud at times Mood/Affect: Patient reports their mood is okay", affect is incongruent Suicidality/Homicidality: Patient denies having any homicidal ideation intent or plan. Denies any suicidal ideations intent or plan Perceptions: Patient denies any visual hallucinations and denies any auditory hallucinations Though content/process: There is no evidence of any delusional thought content and thought process is linear and goal-directed. Minimizes her situation and need for treatment. Focused on discharge. Catastrophizing Memory and concentration: AOX3, grossly intact for the purposes of this session. Can spell "WORLD" backwards Judgment and insight: poor STRENGTHS/WEAKNESSES: strength is that patient is resilient. Weakness is that patient has poor judgment and is impulsive INTELLECT: average IMPRESSIONS: Depressive disorder unspecified, rule out bipolar depression versus adjustment disorder with depressed mood versus major depressive disorder versus substance induced mood disorder Cannabis use disorder Nicotine dependence PLAN: -Patient is admitted under voluntary status to [facility] for stabilization of psychiatric symptoms and safety. Patient has signed adult voluntary form and medication consent and is placed in patient's chart. -Medications : Will start patient on Zoloft 25 mg daily for mood/anxiety. -Ativan and Haldol PRN for agitation/aggression -Patient was counselled on substance abuse and desired to cut back on use -Patient was informed of the risks, benefits and side effects of the medication and patient verbally consented to taking the medications. Patient signed med consent form and was placed in chart. -Internal Medicine consult to perform medical evaluation and physical. -NRT - nicotine patch -SW on board for discharge planning. Encourage patient to participate in groups to work on coping skills. 05/07/22 13:13" Hospital course: Upon admission to the unit patient was irritable/argumentative, but directable and agreeable to commence treatment and signed adult voluntary form. Patient followed unit protocol. Patient was compliant with the medications and denied any side effects throughout hospital course. Patient was started on Zoloft and titrated to 50 mg daily for depression/anxiety. Patient spoke of her stressors and engaged in therapy both group and individual. Patient was also seen by medical team for history and physical exam. Throughout the course of the hospitalization patient gradually improved with regards to mood, anxiety, sleep and returned back to their baseline level of functioning. On the day of discharge patient denied any suicidal or homicidal ideation, intent or plan denied any auditory or visual hallucinations. The patient denied any access to guns or weapons. Patient denied any paranoia and did not endorse any delusions. Patient does have a significant history of substance abuse and was counseled on abstaining from all substances including alcohol and marijuana. Patient was also counseled on the medications and need for regular compliance and was encouraged to follow-up with their outpatient appointment for mental health and also for primary care. Mental status exam: General Appearance: Patient appears to be stated age, is alert, pleasant, and cooperative. Patient is in no acute distress and has improved hygiene and grooming Behavior: Patient is calmly seated without any agitated behavior. Speech: Patient's speech is fluent and nonpressured. Mood/Affect: Patient reports their mood is "good", affect is congruent and euthymic. Suicidality/Homicidality: Patient denies having any suicidal or homicidal ideation intent or plan. Perceptions: Patient denies any auditory or visual hallucinations. Though content/process: There is no evidence of any delusional thought content and thought process is linear and goal-directed. Memory and concentration: AOX3, grossly intact for the purposes of this session. Judgment and insight: Improved with guarded prognosis Impression: Depressive disorder, unspecified Cannabis use disorder Nicotine dependence Plan: -Continue with discharge today as patient has improved and stabilized psychiatrically and is not currently an imminent threat to herself and/or others. Patient will remain at chronically elevated risk for harm to self and/or others due to his impulsivity and polysubstance abuse. -Continue medications: Zoloft 50 mg daily for depression/anxiety. -Patient was counseled on the need for medication compliance and appropriate follow-up at mental health and also primary care for medical issues. Patient verbalized understanding and agreed. -Social work also to arrange for patients follow up appointments for psychiatric care along with follow up with primary care provider. -Patient counseled on abstaining from recreational drugs and marijuana and alcohol. Was informed/educated on the adverse effects on their physical and mental health. -Patient was instructed to return to the hospital or seek immediate medical care if their psychiatric or medical symptoms do worsen or reoccur. Vital Signs (72 hours) 05/09/22 08:21 Pulse Rate [ 82 Left] Blood Pressure 189/105 [Left Arm] Laboratory Results Coronavirus (PCR) Not Detected (Not Detectd) 05/06/22 15:43 Plan - Discharge Summary New Discharge Prescriptions: New amLODIPine [Norvasc] 5 mg PO DAILY tab Sertraline [Zoloft] 50 mg PO DAILY 30 Days #30 tab Discharge Medication List Sertraline [Zoloft] 50 mg PO DAILY 30 Days #30 tab 05/09/22 [Rx] amLODIPine [Norvasc] 5 mg PO DAILY tab 05/09/22 [Rx] Follow up Appointment(s)/Referral(s): [facility] [Outside] - 05/12/22 2:00 pm (with Renee arrive at 1:30pm for paperwork) Jonathan Akbar MD [Primary Care Provider] - 1-2 days Patient Instructions/Handouts: Bipolar Disorder (DC) Activity/Diet/Wound Care/Special Instructions: Avoid the use of street drugs and alcohol. Take all prescriptions as prescribed . When you are in need of refills on your medications, please contact your medical provider and/or outpatient psychiatrist to have this done. Please go to scheduled outpatient appointment for aftercare treatment. If symptoms return or become worse, call the crisis line at and/or go to the nearest emergency room for evaluation. Discharge Disposition: HOME SELF-CARE
== END 2022-05-09 12:29 | disposition home or self-care (01) | DRG 881 ==
LOC: EC 11:06 → 3MHU 17:00 → EC 19:17
PROVIDERS: ADMIT Psychiatry & Neurology Psychiatry; ATTEND Psychiatry & Neurology Psychiatry
DX: F32.A Depression, unspecified (principal); F12.10 Cannabis abuse, uncomplicated; Z20.822 Contact with and (suspected) exposure to COVID-19; F17.210 Nicotine dependence, cigarettes, uncomplicated; F41.9 Anxiety disorder, unspecified; I10 Essential (primary) hypertension; L70.9 Acne, unspecified; Z71.41 Alcohol abuse counseling and surveillance of alcoholic; Z71.51 Drug abuse counseling and surveillance of drug abuser
CPT/HCPCS: 82075; 87635; 99285